=== PATIENT | female | born 1950 | race Caucasian/White ===

== ENCOUNTER 2016-12-14 14:28 | Inpatient (IN) | payer OTHER, MEDICAID ==
[2016-12-14] MEDS ORDERED: NS 500 ML IV ONE (15:23)
--- NOTE | 2016-12-14 15:24 | EDPHY ---
H & P Time Seen by Provider: 12/14/16 14:53 HPI/ROS: CHIEF COMPLAINT: Diarrhea HISTORY OF PRESENT ILLNESS: Patient is a 66-year-old female with previous traumatic brain injury with subsequent seizure disorder who presents to the emergency department with repeated episodes of diarrhea. The patient states she has had greater than 12 episodes of bloody diarrhea. She denies abdominal discomfort. Mild lightheadedness. No dizziness. No chest pain or shortness of breath. Patient denies rectal pain. REVIEW OF SYSTEMS: My complete review of systems is negative except as mentioned in the HPI. Past Medical/Surgical History: Includes traumatic brain injury Social history: The patient smokes cigarettes Smoking Status: Current every day smoker Physical Exam: Vitals noted GENERAL: No acute distress, alert. The lights are off in the room. The patient states that she cannot have the lights on as it will cause a seizure. The room smells of cigarette smoke. HEENT: Eyes normal to inspection, normal pharynx, no signs of dehydration. NECK: No thyromegaly, no lymphadenopathy, supple. RESPIRATORY: Clear to auscultation bilaterally, no rales, rhonchi or wheezing. CVS: Regular rate and rhythm, no rubs, murmurs, or gallops. ABDOMEN: Soft, nontender, nondistended, no organomegaly. Benign BACK: Normal to inspection, no CVA tenderness. SKIN: Normal color, no rash, warm, dry. No pallor. EXTREMITIES: No pedal edema, no calf tenderness, no Homans sign or cords, no joint swelling. NEURO/PSYCH: Alert and oriented x3, normal mood and affect, normal motor sensory exam. No obvious cranial nerve deficit. Constitutional: Initial Vital Signs Temperature (C) 36.5 C 12/14/16 14:37 Heart Rate 57 L 12/14/16 14:37 Respiratory Rate 16 12/14/16 14:37 Blood Pressure 181/119 H 12/14/16 14:37 O2 Sat (%) 98 12/14/16 14:37 O2 Delivery Mode Room Air Allergies/Adverse Reactions: No Known Allergies Allergy (Unverified 12/14/16 15:46) Medical Decision Making ED Course/Re-evaluation: In the emergency department I discussed the plan with the patient. I answered all her questions. IV was placed. Laboratory studies were obtained. Patient was given normal saline 500 mL IV for hydration. I reviewed the patient's laboratory studies. Of note her white count was elevated at nearly 30,000. Her hematocrit was 52. Chemistry panel is unremarkable. The patient had a bowel movement while in the emergency department. A sample was sent. The patient was noted to have ortiz blood. The I discussed the plan with the patient. I answered all her questions. I discussed the case with Dr. Randolph. He will admit the patient. Differential Diagnosis: Differential includes but is not limited to internal hemorrhoids, external hemorrhoids, fissure, diverticulitis, mass, malignancy, ischemic bowel, infectious diarrhea - Data Points Laboratory Results: Laboratory Results 12/14/16 14:42 12/14/16 14:42 12/14/16 12/14/16 12/14/16 14:42 14:42 14:42 WBC 29.80 10^3/uL H 10^3/uL (3.80-9.50) RBC 5.87 10^6/uL H 10^6/uL (4.18-5.33) Hgb 17.9 g/dL H g/dL (12.6-16.3) Hct 52.8 % H % (38.0-47.0) MCV 89.9 fL fL (81.5-99.8) MCH 30.5 pg pg (27.9-34.1) MCHC 33.9 g/dL g/dL (32.4-36.7) RDW 15.1 % % (11.5-15.2) Plt Count 295 10^3/uL 10^3/uL (150-400) MPV 10.9 fL fL (8.7-11.7) Neut % (Auto) 90.4 % H % (39.3-74.2) Lymph % (Auto) 3.2 % L % (15.0-45.0) [place] % (Auto) 5.2 % % (4.5-13.0) Eos % (Auto) 0.0 % L % (0.6-7.6) Baso % (Auto) 0.4 % % (0.3-1.7) Nucleat RBC Rel Count 0.0 % % (0.0-0.2) Absolute Neuts (auto) 26.93 10^3/uL H 10^3/uL (1.70-6.50) Absolute Lymphs (auto) 0.94 10^3/uL L 10^3/uL (1.00-3.00) Absolute Monos (auto) 1.55 10^3/uL H 10^3/uL (0.30-0.80) Absolute Eos (auto) 0.01 10^3/uL L 10^3/uL (0.03-0.40) Absolute Basos (auto) 0.12 10^3/uL H 10^3/uL (0.02-0.10) Absolute Nucleated RBC 0.00 10^3/uL 10^3/uL (0-0.01) Immature Gran % 0.8 % % (0.0-1.1) Immature Gran # 0.25 10^3/uL H 10^3/uL (0.00-0.10) PT 13.4 SEC SEC (12.0-15.0) INR 1.03 (0.83-1.16) APTT 32.2 SEC SEC (23.0-38.0) Sodium 145 mEq/L H mEq/L (134-144) Potassium 3.9 mEq/L mEq/L (3.5-5.2) Chloride 106 mEq/L mEq/L (97-110) Carbon Dioxide 23 mEq/l mEq/l (22-31) Anion Gap 16 mEq/L mEq/L (8-16) BUN 22 mg/dL mg/dL (7-23) Creatinine 0.8 mg/dL mg/dL (0.6-1.0) Estimated GFR > 60 Glucose 166 mg/dL H mg/dL (70-100) Calcium 10.8 mg/dL H mg/dL (8.5-10.4) Phosphorus 4.0 mg/dL mg/dL (2.5-4.5) Total Bilirubin 1.4 mg/dL mg/dL (0.1-1.4) Conjugated Bilirubin 0.7 mg/dL H mg/dL (0.0-0.5) Unconjugated Bilirubin 0.7 mg/dL mg/dL (0.0-1.1) AST 59 IU/L H IU/L (14-46) ALT 58 IU/L H IU/L (9-52) Alkaline Phosphatase 106 IU/L IU/L (38-126) Total Protein 8.0 g/dL g/dL (6.3-8.2) Albumin 4.6 g/dL g/dL (3.5-5.0) Lipase 29 IU/L IU/L (23-300) Medications Given: Discontinued Medications Sodium Chloride (Ns) 500 mls @ 0 mls/hr IV EDNOW ONE; Wide Open PRN Reason: Protocol Stop: 12/14/16 15:24 Last Admin: 12/14/16 15:45 Dose: 500 mls Departure - Departure Disposition: [facility] Inpatient Acute Clinical Impression: Diarrhea Qualifiers: Diarrhea type: unspecified type Qualified Code(s): R19.7 - Diarrhea, unspecified Leukocytosis Qualifiers: Leukocytosis type: unspecified Qualified Code(s): D72.829 - Elevated white blood cell count, unspecified Condition: Good Referrals: SHERRELL STONE [Other] - As per Instructions
[2016-12-14 15:33] LABS: % IMMATURE GRANULYOCYTES 0.8 % (0.0-1.1); ABSOLUTE IMMATURE GRANULOCYTES 0.25 10^3/uL (0.00-0.10); ADD DIFF? NO; ADD MORPH? NO; ADD SCAN? NO; ATYPICAL LYMPHOCYTE FLAG 0 (0-99); FRAGMENT RBC FLAG 0 (0-99); HEMATOCRIT 52.8 % (38.0-47.0); HEMOGLOBIN 17.9 g/dL (12.6-16.3); LEFT SHIFT FLG 10 (0-99); LIPEMIA HEMOLYSIS FLAG 90 (0-99); MEAN CELL HEMOGLOBIN 30.5 pg (27.9-34.1); MEAN CELL HEMOGLOBIN CONCENTR. 33.9 g/dL (32.4-36.7); MEAN CELL VOLUME 89.9 fL (81.5-99.8); MEAN PLATELET VOLUME 10.9 fL (8.7-11.7); PLATELET CLUMPS FLAG 0 (0-99); PLATELET COUNT 295 10^3/uL (150-400); RED BLOOD CELL COUNT 5.87 10^6/uL (4.18-5.33); RED CELL DISTRIBUTION WIDTH 15.1 % (11.5-15.2)
[2016-12-14 15:35] LABS: ALANINE AMINOTRANSFERASE 58 IU/L (9-52); ALBUMIN 4.6 g/dL (3.5-5.0); ALKALINE PHOSPHATASE 106 IU/L (38-126); ANION GAP 16 mEq/L (8-16); ASPARTATE AMINOTRANSFERASE 59 IU/L (14-46); BILIRUBIN,TOTAL 1.4 mg/dL (0.1-1.4); BILIRUBIN-CONJUGATED 0.7 mg/dL (0.0-0.5); BILIRUBIN-UNCONJUGATED 0.7 mg/dL (0.0-1.1); CALCIUM 10.8 mg/dL (8.5-10.4); CARBON DIOXIDE 23 mEq/l (22-31); CHLORIDE 106 mEq/L (97-110); CREATININE 0.8 mg/dL (0.6-1.0); GLOMERULAR FILTRATION RATE > 60; GLUCOSE 166 mg/dL (70-100); POTASSIUM 3.9 mEq/L (3.5-5.2); SODIUM 145 mEq/L (134-144)
[2016-12-14 15:38] LABS: INR 1.03 (0.83-1.16); PROTIME(PATIENT) 13.4 SEC (12.0-15.0)
[2016-12-14 15:39] LABS: APTT 32.2 SEC (23.0-38.0)
[2016-12-14] MEDS ORDERED: ONDANSETRON 4 MG/2 ML VIAL IVP PRN (16:51)
[2016-12-14] MEDS ORDERED: ONDANSETRON DISINTEGRATING 4 MG TAB PO PRN (16:51)
--- NOTE | 2016-12-14 17:44 | GHP ---
[f rep st] HISTORY AND PHYSICAL DATE OF ADMISSION: 12/14/2016 CHIEF COMPLAINT: Bloody diarrhea. HISTORY OF PRESENT ILLNESS: This is a 66-year-old female with a history of traumatic brain injury, sharan coley. She had woke up this morning in usual state of health and then started developing bloody di arrhea. Initially it was more diarrhea and less blood, and has progressed to more blood currently. She has had a little bit of cramping but no ortiz abdominal pain. She has not had a colonoscopy befo re. She does feel like she has had hemorrhoids in the past. She has had chills but no fever. No si ck contacts. No recent antibiotic usage or hospitalizations. REVIEW OF SYSTEMS: A 10-point review of systems was obtained and other than stated was negative. PAST MEDICAL HISTORY: 1. Traumatic brain injury. 2. Seizures. 3. Anxiety. SOCIAL HISTORY: Smoker. No alcohol. FAMILY HISTORY: No family history of colon cancer. PHYSICAL EXAMINATION: VITAL SIGNS: Afebrile, blood pressure is , heart rate is 57, oxygen saturation 96% on room air. GENERAL: The patient is well developed, in no apparent distress. HEEN T: Nonicteric sclerae. Extraocular movements intact. Moist mucous membranes. NECK: Supple. No thyromegaly. LUNGS: Good effort. Clear to auscultation bilaterally. CARDIOVASC ULAR: Regular rate and rhythm. No murmurs, rubs, or gallops. ABDOMEN: Positive bowel sounds. Sof t, nontender. No hepatosplenomegaly. EXTREMITIES: No clubbing, cyanosis, or edema. SKIN: Without rash, dry, intact. NEUROLOGIC: Alert and oriented x3. Moving all 4 extremities equally. PSYCH: Normal affect. LABORATORIES: White blood cell count is elevated at 29, hemoglobin is 17. Sodium 145, potassium 3.9 . AST 59, ALT 58. ASSESSMENT: This is a 66-year-old female presenting with bloody diarrhea, leukocytosis. PLAN: 1. Bloody diarrhea. Trying to differentiate between lower GI bleed versus infectious bloody diarrhe a. GI pathogens testing has been sent. She does not seem to have a lot of risk factors for C diffic ile. We will monitor H and H. If GI pathogen panel is negative, we will consider GI consultation. 2. History of seizures. Continue medications. 3. Leukocytosis could be related to infection or stress of bleeding. We will continue to watch. We will hold on antibiotics unless something is positive on her GI pathogen panel. 4. Polycythemia could chronic due to her from smoking or could be dehydration. We will continue to watch. /[id number]/MODL
[2016-12-14] MEDS: NS 1,000 ML IV SCH (18:46)
[2016-12-14] MEDS: ACETAMINOPHEN 325 MG TAB PO PRN (22:12)
[2016-12-15 01:52] LABS: HEMATOCRIT 47.1 % (38.0-47.0); HEMOGLOBIN 15.2 g/dL (12.6-16.3)
[2016-12-15] MEDS: NS 1,000 ML IV SCH ×2 (04:26→12:36)
[2016-12-15] MEDS: ACETAMINOPHEN 325 MG TAB PO PRN ×3 (04:26→21:03)
[2016-12-15 05:06] LABS: % IMMATURE GRANULYOCYTES 0.3 % (0.0-1.1); ABSOLUTE IMMATURE GRANULOCYTES 0.05 10^3/uL (0.00-0.10); ADD DIFF? NO; ADD MORPH? NO; ADD SCAN? NO; ATYPICAL LYMPHOCYTE FLAG 0 (0-99); FRAGMENT RBC FLAG 0 (0-99); HEMATOCRIT 42.4 % (38.0-47.0); HEMOGLOBIN 14.2 g/dL (12.6-16.3); LEFT SHIFT FLG 0 (0-99); LIPEMIA HEMOLYSIS FLAG 80 (0-99); MEAN CELL HEMOGLOBIN 29.3 pg (27.9-34.1); MEAN CELL HEMOGLOBIN CONCENTR. 33.5 g/dL (32.4-36.7); MEAN CELL VOLUME 87.6 fL (81.5-99.8); MEAN PLATELET VOLUME 10.7 fL (8.7-11.7); PLATELET CLUMPS FLAG 0 (0-99); PLATELET COUNT 213 10^3/uL (150-400); RED BLOOD CELL COUNT 4.84 10^6/uL (4.18-5.33); RED CELL DISTRIBUTION WIDTH 14.7 % (11.5-15.2)
[2016-12-15 05:14] LABS: ALANINE AMINOTRANSFERASE 52 IU/L (9-52); ALBUMIN 3.2 g/dL (3.5-5.0); ALKALINE PHOSPHATASE 70 IU/L (38-126); ANION GAP 9 mEq/L (8-16); ASPARTATE AMINOTRANSFERASE 37 IU/L (14-46); BILIRUBIN,TOTAL 0.8 mg/dL (0.1-1.4); CALCIUM 8.9 mg/dL (8.5-10.4); CARBON DIOXIDE 19 mEq/l (22-31); CHLORIDE 115 mEq/L (97-110); CREATININE 0.7 mg/dL (0.6-1.0); GLOMERULAR FILTRATION RATE > 60; GLUCOSE 97 mg/dL (70-100); POTASSIUM 3.6 mEq/L (3.5-5.2); SODIUM 143 mEq/L (134-144); TOTAL PROTEIN 5.7 g/dL (6.3-8.2)
[2016-12-15 05:21] LABS: COLOR AMBER; LEUKOCYTE ESTERASE,URINE 1+ (NEGATIVE); NITRITE,URINE POSITIVE (NEGATIVE)
[2016-12-15 05:45] LABS: BACTERIA 4+ /hpf (NONE SEEN); MUCUS 2+ /lpf (NONE-1+); RBC,URINE 25-50 /hpf (0-3)
[2016-12-15 08:15] LABS: HEMATOCRIT 41.1 % (38.0-47.0)
[2016-12-15] MEDS: DIAZEPAM 5 MG TAB PO PRN (09:51)
[2016-12-15] MEDS: ADDERALL 10 MG TAB PO SCH (10:07)
--- NOTE | 2016-12-15 13:04 | HOSPPROG ---
Hospitalist Progress Note Assessment/Plan: First encounter with this patient 66 yo female admitted with one day hx of bloody diarrhea. On admission she had polycythemia. It was felt that she had a LGIB vs infectious diarrhea on admission, but infectious w/u has been unremarkable. Today, she no longer has diarrhea, but intermittently is passing small amount of red blood. No melena. She has a hx of chronic NSAID use for which she takes for BARDALES's. She does c/o of some mid epigastric abd pain. Hgb has dropped but is 14. She does not have hypotension or tachycardia. 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 -consult GI -Start PPI, blood pattern likely indicated LGIB, but given hx of NSAIDS and abd discomfort will start Protonix -hemodynamically stable -Decrease IVF -will cont CLD for now #GI Bleed. Likely LGIB #Blood diarrhea, w/u negative for infectious etiology #Polycythemia, resolved #chronic NSAID use Subjective: No further diarrhea. Still with intermittent blood per rectum. No CP or SOB. No tachycardia Objective: Vital Signs Temp Pulse Resp BP Pulse Ox 37.0 C 60 18 141/84 H 94 12/15/16 12:00 12/15/16 12:00 12/15/16 12:00 12/15/16 12:00 12/15/16 12:00 Microbiology 12/14/16 17:45 Gastrointestinal Tract Panel (PCR) - Final Stool No Organism Detected Laboratory Results 12/15/16 08:09 12/15/16 04:50 12/14/16 12/15/16 12/16/16 05:59 05:59 05:59 Intake Total 250 Output Total 300 Balance -50 PT 13.4 SEC (12.0-15.0) 12/14/16 14:42 INR 1.03 (0.83-1.16) 12/14/16 14:42 - Physical Exam Constitutional: no apparent distress, appears nourished, not in pain Eyes: PERRL, anicteric sclera, EOMI Ears, Nose, Mouth, Throat: moist mucous membranes, hearing normal Cardiovascular: regular rate and rhythym, No irregularly irregular, No edema Respiratory: no respiratory distress, no rales or rhonchi, clear to auscultation Gastrointestinal: tenderness (epigastric), No distension Skin: warm Neurologic: AAOx3 Psychiatric: interacting appropriately, not anxious, not encephalopathic ICD10 Worksheet Patient Problems: Problems Problem Status Onset Diarrhea Acute Leukocytosis Acute
[2016-12-15] MEDS: PANTOPRAZOLE SODIUM 40 MG in NS 100 ML IV SCH ×2 (13:39→21:04)
[2016-12-15 13:57] LABS: HEMATOCRIT 39.4 % (38.0-47.0); HEMOGLOBIN 13.7 g/dL (12.6-16.3)
[2016-12-15] MEDS: oxyCODONE IR 5 MG TAB PO PRN ×2 (15:09→21:03)
--- NOTE | 2016-12-15 15:37 | PDMN ---
Medical Necessity Medical necessity: change to IP; los>2mn for ongoing eval and rx of LGIB, with continued BRBPR; requires IV PPI, continued monitoring; hx chronic NSAID use; per progress note and order 12/15/16
--- NOTE | 2016-12-15 16:15 | ASMTCMCOM ---
CM Note CM Note Notes: chart reviewed. Met with patient to review dc POC. Lives independent with good support. She may dc tomorrow if HGB and HCT stable. She is planning on foillowing up with out pt colonoscopy. No needs identified at this time. CM available shound needs arise. Date Signed: 12/15/2016 04:14 PM Electronically Signed By:Freda Raza RN
[2016-12-15] MEDS ORDERED: ADDERALL 10 MG TAB PO SCH (18:00)
[2016-12-15] MEDS ORDERED: DIAZEPAM 5 MG TAB PO ONE (21:00)
--- NOTE | 2016-12-16 00:10 | CPEKG ---
Heart Rate: 131 RR Interval: 458 QRSD Interval: 84 QT Interval: 344 QTC Interval: 508 QRS Centre: 66 T Wave Centre: 16 EKG Severity - ABNORMAL ECG - EKG Impression: ATRIAL FIBRILLATION EKG Impression: BORDERLINE ST DEPRESSION, DIFFUSE LEADS EKG Impression: BORDERLINE PROLONGED QT INTERVAL Electronically Signed By: Tierney Gaytan 17-Dec-2016 06:50:16
[2016-12-16] MEDS ORDERED: NS 1,000 ML IV ONE (00:24)
--- NOTE | 2016-12-16 00:31 | HOSPPROG ---
Hospitalist Progress Note Assessment/Plan: Cross cover: Called about new tachycardia. Obtained ECG, which showed Afib. This appears to be new from my review. Will give IVF and place patient on telemetry monitoring. She is hemodynamically stable but may require AV kathleen blocking agents in HR persistently elevated. Objective: Vital Signs Temp Pulse Resp BP Pulse Ox 37.1 C 111 H 18 141/115 H 94 12/15/16 23:36 12/15/16 23:36 12/15/16 23:36 12/15/16 23:36 12/15/16 23:36 12/14/16 12/15/16 12/16/16 05:59 05:59 05:59 Intake Total 500 Balance 500 PT 13.4 SEC (12.0-15.0) 12/14/16 14:42 INR 1.03 (0.83-1.16) 12/14/16 14:42 ICD10 Worksheet Patient Problems: Problems Problem Status Onset Diarrhea Acute Leukocytosis Acute
[2016-12-16 05:24] LABS: % IMMATURE GRANULYOCYTES 0.4 % (0.0-1.1); ABSOLUTE IMMATURE GRANULOCYTES 0.04 10^3/uL (0.00-0.10); ADD DIFF? NO; ADD MORPH? NO; ADD SCAN? NO; ATYPICAL LYMPHOCYTE FLAG 10 (0-99); FRAGMENT RBC FLAG 0 (0-99); HEMATOCRIT 39.2 % (38.0-47.0); HEMOGLOBIN 13.3 g/dL (12.6-16.3); LEFT SHIFT FLG 0 (0-99); LIPEMIA HEMOLYSIS FLAG 90 (0-99); MEAN CELL HEMOGLOBIN CONCENTR. 33.9 g/dL (32.4-36.7); MEAN CELL VOLUME 88.5 fL (81.5-99.8); MEAN PLATELET VOLUME 10.9 fL (8.7-11.7); PLATELET CLUMPS FLAG 10 (0-99); PLATELET COUNT 188 10^3/uL (150-400); RED BLOOD CELL COUNT 4.43 10^6/uL (4.18-5.33); RED CELL DISTRIBUTION WIDTH 15.2 % (11.5-15.2)
[2016-12-16 05:35] LABS: ANION GAP 5 mEq/L (8-16); CALCIUM 8.8 mg/dL (8.5-10.4); CARBON DIOXIDE 20 mEq/l (22-31); CHLORIDE 116 mEq/L (97-110); CREATININE 0.7 mg/dL (0.6-1.0); GLOMERULAR FILTRATION RATE > 60; GLUCOSE 84 mg/dL (70-100); POTASSIUM 3.6 mEq/L (3.5-5.2); SODIUM 141 mEq/L (134-144)
[2016-12-16] MEDS ORDERED: DEXTROAMPHETAMINE 5 MG TAB PO SCH (09:00)
[2016-12-16] MEDS ORDERED: AMPHETAMINE PO SCH (09:00)
[2016-12-16] MEDS ORDERED: DEXTROAMPHETAMINE PO SCH (09:00)
[2016-12-16] MEDS: oxyCODONE IR 5 MG TAB PO PRN ×2 (09:14→17:47)
[2016-12-16] MEDS: ADDERALL 10 MG TAB PO SCH (09:15)
[2016-12-16] MEDS: PANTOPRAZOLE SODIUM 40 MG in NS 100 ML IV SCH (09:17)
--- NOTE | 2016-12-16 09:41 | CPEKG ---
Heart Rate: 57 RR Interval: 1053 P-R Interval: 168 QRSD Interval: 92 QT Interval: 472 QTC Interval: 460 P [place]: -11 QRS [place]: 32 T Wave [place]: 4 EKG Severity - NORMAL ECG - EKG Impression: SINUS RHYTHM EKG Impression: SINUS RHYTHM HAS REPLACED ATRIAL FIBRILLATION NOTED ON PRIOR ECG Electronically Signed By: Pranav Irizarry 18-Dec-2016 08:33:09
--- NOTE | 2016-12-16 09:56 | HOSPPROG ---
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 On admission she had polycythemia. It was felt that she had a LGIB vs infectious diarrhea on admission, but infectious w/u has been unremarkable. She has a hx of chronic NSAID use for which she takes for BARDALES's. Overall Hgb has decreased slightly, but she has been on IVF. Overnight, she developed Afib. Unclear if this is new onset as she thinks she has had 2 previous episodes. BP has been high as well. She was given additional IVF with resolution. I ordered and reviewed an EKG this morning and this shows NSR. She does not have CP or SOB Yesterday, I spoke with GI about colonoscopy. Given that she is hemodynamically stable, the patient preferred to wait until an outpatient setting for colonoscopy. Plan: -Repeat Hgb now -If no further drop, then will start BB. If further drop, will need colonoscopy -Monitor off IVF -cont Telemetry -Check TTE -Cards consult -Cont PPI IV BID. If no further drop, change to PO. Suspect LGIB, but due to chronic NSAID use and abd discomfort, will treat -CLD for now. If no further drop, will advance -Monitor overnight #GI Bleed. Likely LGIB #Blood diarrhea, w/u negative for infectious etiology #Polycythemia, resolved #chronic NSAID use #Afib, ?new onset Subjective: went into Afib yesterday. Now appears in SR. No CP or SOB. No N/V. Still with mild abd discomfort. Very tearful about going into afib. She thinks she may have had Afib twice previously. No further blood per rectum. No diarrhea. Objective: Vital Signs Temp Pulse Resp BP Pulse Ox 36.6 C 66 16 170/93 H 97 12/16/16 08:00 12/16/16 08:00 12/16/16 08:00 12/16/16 08:44 12/16/16 08:00 Laboratory Results 12/16/16 04:40 12/16/16 04:40 12/15/16 12/16/16 12/17/16 05:59 05:59 05:59 Intake Total 500 Balance 500 PT 13.4 SEC (12.0-15.0) 12/14/16 14:42 INR 1.03 (0.83-1.16) 12/14/16 14:42 - Time Spent With Patient Time Spent with Patient: greater than 35 minutes Time Spent with Patient: Greater than 35 minutes spent on this patients care, greater than 50% of time spent counseling, educating, and coordinating care regarding the above mentioned plan. - Physical Exam Constitutional: no apparent distress, appears nourished, not in pain Eyes: PERRL, anicteric sclera, EOMI Ears, Nose, Mouth, Throat: moist mucous membranes, hearing normal Cardiovascular: regular rate and rhythym, systolic murmur, No no murmur, rub, or gallop, No edema Respiratory: no respiratory distress, no rales or rhonchi, clear to auscultation Gastrointestinal: tenderness (epigastric), No rebound, No distension Skin: warm Neurologic: AAOx3, sensation intact bilaterally Psychiatric: interacting appropriately, not anxious, not encephalopathic, thought process linear ICD10 Worksheet Patient Problems: Problems Problem Status Onset Diarrhea Acute Leukocytosis Acute
--- NOTE | 2016-12-16 11:50 | ECHO ---
[email or web address] [address] Main: [phone] Fax: [email or web address] Echocardiogram Name: FRANDY TURNER MR#: [id number] Study Date: 12/16/2016 Study Time: 10:48 AM Date of : 1950 Age: 66 year(s) Height: 167.6 cm (66 in.) Weight: 74.84 kg (165 lb.) BSA: 1.84 m2 Gender: Female Examination: Echo Indication: Atrial Fibrillation Image Quality: Contrast: Requested by: Houston Reyes BP: 170 mmHg/93 mmHg Heart Rate: Rhythm: Indication: Atrial Fibrillation Procedure Staff Curbstone Setter: Vivien Joseph Reading Physician: Jorge A Harmon Requesting Provider: Conclusions: Normal left ventricular systolic function. Ejection fraction 65%. Progessive mitral valve regurgitation associated with left atrial enlargement and elevated filling pressures (Based on moderate mitral regurgitation a repeat echo may be considered in 1 yr unless there is a change in clinical status.) Systemic hypertension Measurements: Chambers Valvular Assessment AV/MV Valvular Assessment TV/PV Normal Normal Normal Name Value Range Name Value Range Name Value Range Ao Nicky (MM): 3.3 cm (2.2 cm-3.7 AV Vmax: 1.25 m/s (1 m/s-1.7 TR Vmax: 2.43 mm/s ( - ) cm) m/s) TR PGmax: 24 mmHg ( - ) IVSd (2D): 0.5 cm (0.6 cm-1.1 AV maxP mmHg ( - ) syst. PAP: 29 mmHg ( - ) cm) MV E Vmax: 0.96 m/s ( - ) LVDd (2D): 4.9 cm (3.9 cm-5.3 MV A Vmax: 0.79 m/s ( - ) cm) MV E/A: 1.22 ( - ) LVDs (2D): 3.2 cm (2.1 cm-4 cm) LVPWd (2D): 0.8 cm ( - ) LVOTd 1.9 cm 1.9 cm mm LVEF (MOD4): 67 % (>=55 %) Visual EF: 65 % Continued Measurements: Chambers Valvular Assessment AV/MV Valvular Assessment TV/PV Name Value Name Value Name Value LADs: 4.1 cm MV E' Septal: 0.06 m/s CVP (est.): 5 mmHg LADs Lon.2 cm MV E/E' Septal: 15.70 LA Area: 17.4 cm2 MV E/E' Lateral: 18.00 Patient: FRANDY TURNER Study Date: 12/16/2016 Page 1 of 2 10:48 AM MR Vena Contracta: 0.4 cm Findings: Left Ventricle: Normal size left ventricle. The ejection fraction is visually estimated to be 65 %. Right Ventricle: Normal size right ventricle. Left Atrium: The left atrium is mildly dilated. There is an atrial septal aneurysm with right excursion. Right Atrium: The right atrium is normal in size. Possible Eustachian valve in right atrium. Mitral Valve: The mitral valve is normal in appearance. Mild to moderate mitral regurgitation. Aortic Valve: The aortic valve is tri-leaflet. Tricuspid Valve: The tricuspid valve appears normal. Mild tricuspid regurgitation is present. The pulmonary artery pressure is normal. Pulmonic Valve: The pulmonic valve is normal in appearance. Trivial pulmonic valve regurgitation. Pericardium: No pericardial effusion. (No Signature Object) Patient: FRANDY TURNER Study Date: 12/16/2016 Page 2 of 2 10:48 AM [id number]
--- NOTE | 2016-12-16 11:52 | PDCARCONS ---
Cardiology Consult Reason for Consult: Atrial fibrillation. Chief Complaint: palpitations Requesting Physician: Eric History of Present Illness: 66-year-old female no prior cardiovascular history admitted with bloody diarrhea. Last evening she experienced brief palpitations. EKG showed atrial fibrillation with rapid ventricular response. This morning she is back in sinus rhythm. She has a history of occasional palpitations. She had a negative cardiac workup in the past including a negative chemical MPI. She has no prior history of coronary artery disease, valvular heart disease, dysrhythmia , heart failure. 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 She tito up and hit her head on a cabinet door. This has been complicated by seizures. She does take Adderall for concentration. She is a smoker of both tobacco and marijuana. She has no history of hyperlipidemia, family history of early heart disease, diabetes. She denies angina, PND, orthopnea. She has had no syncope or near syncope. History Information - Allergies/Home Medication List Allergies/Adverse Reactions: gabapentin Allergy (Severe, Unverified 12/14/16 17:31) Unknown Home Medications: Dextroamphetamine/Amphetamine [Adderall 5 mg Tablet] 15 mg PO DAILY@07 12/14/16 [Last Taken 12/13/16] Diazepam [Valium 5 MG (*)] 5 mg PO DAILY PRN 12/14/16 [Last Taken 2 Weeks Ago ~ 11/30/16] Naproxen [Naprosyn] 500 mg PO BID 12/14/16 [Last Taken 12/13/16] oxyCODONE IR [Oxycodone Ir (*)] 10 mg PO TID PRN 12/14/16 [Last Taken 12/13/16] Dextroamphetamine/Amphetamine [Adderall 5 mg Tablet] 10 mg PO DAILY@18 12/15/16 [Last Taken Unknown] I have personally reviewed and updated: family history, medical history, social history, surgical history Past Medical History: - Social History Smoking Status: Current every day smoker Alcohol Use: None Drug Use: Marijuana (Daily) Age in Years: < 65 (2) Sex: Female Congestive Heart Failure History: No Hypertension History: Yes Stroke/TIA/Thromboembolism History: No Vascular Disease History: No Diabetes Mellitus: No [id number] Score: 5x Physical Exam Physical Exam: Temp Pulse Resp BP Pulse Ox 37.0 C 59 L 17 174/99 H 97 10/13/17 11:39 12/16/16 11:39 12/16/16 11:39 12/16/16 11:39 12/16/16 11:39 Constitutional: no apparent distress Eyes: anicteric sclera, No icteric sclera Ears, Nose, Mouth, Throat: poor dentition Cardiovascular: regular rate and rhythym, systolic murmur, other (S1 accentuated ), No JVD, No carotid bruit Peripheral Pulses: 1+: carotid (R), carotid (L), femoral (R), femoral (L) Respiratory: reduced air movement, rhonchi Gastrointestinal: normoactive bowel sounds, soft, non-tender abdomen Skin: warm, normal color, no rashes or abrasions Neurologic: AAOx3, No facial droop Psychiatric: anxious Lymph, Heme, Immunologic: no cervical LAD, no supraclavicular LAD Lab and Imaging 12/16/16 10:16 12/16/16 04:40 WBC 10.76 10^3/uL (3.80-9.50) H 12/16/16 04:40 RBC 4.43 10^6/uL (4.18-5.33) 12/16/16 04:40 Hgb 14.1 g/dL (12.6-16.3) 12/16/16 10:16 Hct 39.2 % (38.0-47.0) 12/16/16 04:40 MCV 88.5 fL (81.5-99.8) 12/16/16 04:40 MCH 30.0 pg (27.9-34.1) 12/16/16 04:40 MCHC 33.9 g/dL (32.4-36.7) 12/16/16 04:40 RDW 15.2 % (11.5-15.2) 12/16/16 04:40 Plt Count 188 10^3/uL (150-400) 12/16/16 04:40 MPV 10.9 fL (8.7-11.7) 12/16/16 04:40 Neut % (Auto) 55.0 % (39.3-74.2) 12/16/16 04:40 Lymph % (Auto) 36.2 % (15.0-45.0) 12/16/16 04:40 [place] % (Auto) 6.6 % (4.5-13.0) 12/16/16 04:40 Eos % (Auto) 1.3 % (0.6-7.6) 12/16/16 04:40 Baso % (Auto) 0.5 % (0.3-1.7) 12/16/16 04:40 Nucleat RBC Rel Count 0.0 % (0.0-0.2) 12/16/16 04:40 Absolute Neuts (auto) 5.92 10^3/uL (1.70-6.50) 12/16/16 04:40 Absolute Lymphs (auto) 3.90 10^3/uL (1.00-3.00) H 12/16/16 04:40 Absolute Monos (auto) 0.71 10^3/uL (0.30-0.80) 12/16/16 04:40 Absolute Eos (auto) 0.14 10^3/uL (0.03-0.40) 12/16/16 04:40 Absolute Basos (auto) 0.05 10^3/uL (0.02-0.10) 12/16/16 04:40 Absolute Nucleated RBC 0.00 10^3/uL (0-0.01) 12/16/16 04:40 Immature Gran % 0.4 % (0.0-1.1) 12/16/16 04:40 Immature Gran # 0.04 10^3/uL (0.00-0.10) 12/16/16 04:40 PT 13.4 SEC (12.0-15.0) 12/14/16 14:42 INR 1.03 (0.83-1.16) 12/14/16 14:42 APTT 32.2 SEC (23.0-38.0) 12/14/16 14:42 Sodium 141 mEq/L (134-144) 12/16/16 04:40 Potassium 3.6 mEq/L (3.5-5.2) 12/16/16 04:40 Chloride 116 mEq/L (97-110) H 12/16/16 04:40 Carbon Dioxide 20 mEq/l (22-31) L 12/16/16 04:40 Anion Gap 5 mEq/L (8-16) L 12/16/16 04:40 BUN 9 mg/dL (7-23) 12/16/16 04:40 Creatinine 0.7 mg/dL (0.6-1.0) 12/16/16 04:40 Estimated GFR > 60 12/16/16 04:40 Glucose 84 mg/dL (70-100) 12/16/16 04:40 Calcium 8.8 mg/dL (8.5-10.4) 12/16/16 04:40 Phosphorus 4.0 mg/dL (2.5-4.5) 12/14/16 14:42 Magnesium 2.0 mg/dL (1.6-2.3) 12/16/16 04:40 Total Bilirubin 0.8 mg/dL (0.1-1.4) 12/15/16 04:50 Conjugated Bilirubin 0.7 mg/dL (0.0-0.5) H 12/14/16 14:42 Unconjugated Bilirubin 0.7 mg/dL (0.0-1.1) 12/14/16 14:42 AST 37 IU/L (14-46) 12/15/16 04:50 ALT 52 IU/L (9-52) 12/15/16 04:50 Alkaline Phosphatase 70 IU/L (38-126) 12/15/16 04:50 Total Protein 5.7 g/dL (6.3-8.2) L D 12/15/16 04:50 Albumin 3.2 g/dL (3.5-5.0) L D 12/15/16 04:50 Lipase 29 IU/L (23-300) 12/14/16 14:42 Urine Color NIVIA 12/15/16 04:20 Urine Appearance HAZY 12/15/16 04:20 Urine pH 5.0 (5.0-7.5) 12/15/16 04:20 Ur Specific [place] 1.027 (1.002-1.030) 12/15/16 04:20 Urine Protein 1+ (NEGATIVE) H 12/15/16 04:20 Urine Ketones NEGATIVE (NEGATIVE) 12/15/16 04:20 Urine Blood 3+ (NEGATIVE) H 12/15/16 04:20 Urine Nitrate POSITIVE (NEGATIVE) H 12/15/16 04:20 Urine Bilirubin NEGATIVE (NEGATIVE) 12/15/16 04:20 Urine Urobilinogen NEGATIVE EU (0.2-1.0) 12/15/16 04:20 Ur Leukocyte Esterase 1+ (NEGATIVE) H 12/15/16 04:20 Urine RBC 25-50 /hpf (0-3) H 12/15/16 04:20 Urine WBC 5-10 /hpf (0-3) H 12/15/16 04:20 Ur Epithelial Cells 1+ /lpf (NONE-1+) 12/15/16 04:20 Urine Bacteria 4+ /hpf (NONE SEEN) H 12/15/16 04:20 Urine Mucus 2+ /lpf (NONE-1+) H 12/15/16 04:20 Urine Glucose 1+ (NEGATIVE) H 12/15/16 04:20 Stool Occult Bld Scrn POSITIVE (NEGATIVE) H 12/14/16 17:45 Laboratory Tests 12/14/16 12/15/16 12/16/16 14:42 04:50 04:40 Potassium 3.9 3.6 3.6 AST 59 H ALT 58 H Total Protein 5.7 L D Albumin 3.2 L D EKG additional interpertation: Atrial fibrillation with ventricular rate of 131 , EKG today showed sinus rhythm without acute ST-T changes. Echocardiogram: Preserved LV systolic function, elevated left ventricular end-diastolic pressure by tissue Doppler, moderate mitral regurgitation with left atrial enlargement. A/P Assessment: Problem list: 1. Paroxysmal atrial fibrillation CHADS VASC score of 2 2. Systemic hypertension associated with elevated filling pressures. 3. Progressive mitral regurgitation with left atrial enlargement. 4. COPD with ongoing tobacco abuse 5. Hypokalemia associated with recent diarrheal illness. 6. Cognitive dysfunction secondary to brain injury with ongoing use of marijuana and Adderall. 7. Elevated liver function tests with decreased albumin and protein , concern for synthetic function of the liver. Impression: Minimally symptomatic paroxysmal atrial fibrillation with palpitations. This was not associated with hemodynamic instability/angina, signs of heart failure. EKG showed rate to be 131 beats per minute at rest. She converted spontaneously. She has multiple potential contributing triggers including likely systemic hypertension, left atrial enlargement associated with progressive valvular heart disease, COPD with ongoing tobacco abuse, hypokalemia. Her overall health at this point is somewhat concerning with elevated liver function tests, decreased protein and albumin, cognitive dysfunction. She has had a workup in the past for coronary artery disease which was reportedly negative. Patient's overall chads Vasc score of 2 based on her likely diagnosis of hypertension and being a female. At this point with bloody diarrhea, cognitive dysfunction, uncertain liver function, would not favor initiation of long-term anticoagulation though this would be recommended. For would await clinical recovery and completion of overall health evaluation before making a decision. We would be happy to see her in the outpatient clinic to complete this evaluation. Patient has progressive mitral valve disease with moderate regurgitation left atrial enlargement. Serial echocardiography at least at 1 year increments recommended. Recommendations: Complete risk stratification with assessment of lipids and hemoglobin A1c. Complete metabolic assessment with measurement of TSH Assess degree of cardiac stress with measurement of troponin, CPKMB, BNP. Consider initiation of blood pressure therapy, would recommend beta-rosalba in the setting of atrial fibrillation. Strong recommendation for smoking cessation in light of cognitive dysfunction, COPD based on clinical examination. Replete electrolytes in particular potassium, patient may also need magnesium. Past Medical History PMH: - Personal History Current Tetanus/Diphtheria Vaccine: Yes Current Tetanus Diphtheria and Acellular Pertussis (TDAP): Yes - Medical/Surgical History Hx Asthma: No Hx Chronic Respiratory Disease: No Hx Cardiac Disease: No Hx Diabetes: No Hx Renal Disease: No Hx Alcoholism: No Hx Cirrhosis: No Hx HIV/AIDS: No Hx Splenectomy or Spleen Trauma: No Other PMH: pmh: TBI - Social History Smoking Status: Current every day smoker Additional Social History: Review of Systems Review of Systems: - Review of Systems Constitutional: denies: chills, fever, malaise EENTM: no symptoms reported Respiratory: cough Cardiac: palpitations. denies: chest pain, edema, irregular heart rate, lightheadedness, syncope Gastrointestinal/Abdominal: diarrhea, blood streaked stools Genitourinary: no symptoms Musculoskelatal: no symptoms Skin: no symptoms Neurological: anxiety, depressed, other (difficulty concentrating) Immunologic/allergic: no symptoms reported
[2016-12-16] MEDS ORDERED: ADDERALL 10 MG TAB PO SCH (13:15)
[2016-12-16 13:46] LABS: CHOLESTEROL 130 mg/dL (140-220); HIGH DENSITY LIPOPROTEIN 42 mg/dL (40-85); LDL/HDL RATIO 1.67 RATIO (1.00-3.22); LOW DENSITY LIPOPROTEIN 70 mg/dL (80-100); NON-HIGH DENSITY LIPOPROTEIN 88 mg/dL (90-129); TRIGLYCERIDE 92 mg/dL (35-135); VERY LOW DENSITY LIPOPROTEINS 18 mg/dL (8-25)
[2016-12-16 13:59] LABS: CREATINE KINASE-MB FRACTION 2.75 ng/mL (0.00-3.19)
[2016-12-16] MEDS: METOPROLOL TARTRATE 25 MG TAB PO SCH ×2 (14:50→20:12)
[2016-12-16] MEDS ORDERED: hydrALAZINE 25 MG TAB PO PRN (17:22)
[2016-12-16] MEDS: ACETAMINOPHEN 325 MG TAB PO PRN (17:47)
[2016-12-16] MEDS: PANTOPRAZOLE SODIUM 40 MG TAB PO SCH (20:12)
[2016-12-16] MEDS ORDERED: MELATONIN 3 MG TAB PO SCH (21:00)
[2016-12-16] MEDS: DIAZEPAM 5 MG TAB PO PRN (22:46)
[2016-12-17 04:47] LABS: % IMMATURE GRANULYOCYTES 0.2 % (0.0-1.1); ABSOLUTE IMMATURE GRANULOCYTES 0.02 10^3/uL (0.00-0.10); ADD DIFF? NO; ADD MORPH? NO; ADD SCAN? NO; ATYPICAL LYMPHOCYTE FLAG 10 (0-99); FRAGMENT RBC FLAG 0 (0-99); HEMATOCRIT 42.6 % (38.0-47.0); HEMOGLOBIN 14.6 g/dL (12.6-16.3); LEFT SHIFT FLG 0 (0-99); LIPEMIA HEMOLYSIS FLAG 90 (0-99); MEAN CELL HEMOGLOBIN CONCENTR. 34.3 g/dL (32.4-36.7); MEAN CELL VOLUME 87.5 fL (81.5-99.8); MEAN PLATELET VOLUME 10.3 fL (8.7-11.7); PLATELET CLUMPS FLAG 0 (0-99); PLATELET COUNT 185 10^3/uL (150-400); RED BLOOD CELL COUNT 4.87 10^6/uL (4.18-5.33); RED CELL DISTRIBUTION WIDTH 15.1 % (11.5-15.2)
[2016-12-17 05:00] LABS: ANION GAP 7 mEq/L (8-16); CALCIUM 9.4 mg/dL (8.5-10.4); CARBON DIOXIDE 21 mEq/l (22-31); CHLORIDE 113 mEq/L (97-110); CREATININE 0.8 mg/dL (0.6-1.0); GLOMERULAR FILTRATION RATE > 60; GLUCOSE 92 mg/dL (70-100); POTASSIUM 3.6 mEq/L (3.5-5.2); SODIUM 141 mEq/L (134-144)
[2016-12-17 05:10] LABS: TROPONIN I 0.126 ng/mL (0.000-0.034)
[2016-12-17] MEDS: ADDERALL 10 MG TAB PO SCH (08:27)
[2016-12-17] MEDS: DIAZEPAM 5 MG TAB PO PRN (08:27)
[2016-12-17] MEDS: PANTOPRAZOLE SODIUM 40 MG TAB PO SCH (08:28)
[2016-12-17] MEDS: METOPROLOL TARTRATE 25 MG TAB PO SCH (08:28)
[2016-12-17] MEDS: ACETAMINOPHEN 325 MG TAB PO PRN (08:28)
[2016-12-17 08:31] VITALS: PULSE 69
[2016-12-17 09:14] VITALS: BP 144/69; RESP 19; TEMP 98.2; O2SAT 95
--- NOTE | 2016-12-17 11:00 | PDDCSUM ---
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 On admission she had polycythemia. It was felt that she had a LGIB vs infectious diarrhea on admission, but infectious w/u was unremarkable. She has a hx of chronic NSAID use for which she takes for BARDALES's. She did not get a colonoscopy while inpatient as her Hgb was stable, bleeding stopped, and she chose to f/u with GI in an outpatient setting. Although this was likely a LGIB, Naproxen was stopped and Protonix started. She developed a short course of Afib on 12/15 which resolved with IVF. She was started on Metoprolol 12.5mg BID. Given her bleed neither Aspirin or AC was started. She has been in NSR since. She will f/u with Dr. Harmon. TTE was non revealing. BP has been labile but mostly elevated. Given lability, recently starting Metoprolol, and recent bleed, I am reluctant to treat further. As she has remained stable since yesterday and she wants discharge will d/c home. F/u with GI, PCP, Cards as instructed. Discharge Diagnosis: #GI Bleed. Likely LGIB #Blood diarrhea, w/u negative for infectious etiology #Polycythemia, resolved #chronic NSAID use #Afib, ?new onset #HTN #low back pain: lidoderm patches provided Exam: NAD AAOX3 RRR CTAB S/NT/ND NO EDEMA MEDS: SEE MED REC: STOP NAPROXEN, START METOPROLOL 12.5MG BID, START PROTONIX 40MG PO BID TOTAL TIME SPENT ON DISCHARGE IS 38 MINS.
[2016-12-17] MEDS: oxyCODONE IR 5 MG TAB PO PRN (11:37)
--- NOTE | 2016-12-17 12:10 | ASDISCHSUM ---
Discharge Information Plan Status:Home with No Needs Medically Cleared to Leave: Discharge Date:12/17/2016 11:53 AM CM D/C Disposition:Home, Routine, Self-Care ADT D/C Disposition:Home, Routine, Self-Care Projected Discharge Date:12/17/2016 11:53 AM Transportation at D/C:Family Discharge Delay Reason: Follow-Up Date:12/17/2016 11:53 AM Discharge Slot: Final Diagnosis: Placement Information Patient Contact Information Contact Name:MIKE Relationship:Daughter Address: Home Phone: City: [facility] Phone: [facility]/Zip Code: Email: Financial Information Financial Class: Primary Plan Desc:MEDICARE INPATIENT Primary Plan Number:[id number] Secondary Plan Desc:MEDICAID HEALTH FIRST [place] Secondary Plan Number:[id number] Assessment Information [facility] CM Progress Note CM Note CM Note Notes: chart reviewed. Met with patient to review dc POC. Lives independent with good support. She may dc tomorrow if HGB and HCT stable. She is planning on foillowing up with out pt colonoscopy. No needs identified at this time. CM available shound needs arise. Date Signed: 12/15/2016 04:14 PM Electronically Signed By:Freda Raza RN Intervention Information Intervention Type:*NADER-Signed Date of Service:12/15/2016 09:20 AM Patient Type:Observation Staff Member:Paola Bravo Hours: Discipline: Severity: Comment:
== END 2016-12-17 11:53 | disposition home or self-care (01) | DRG 379 ==
LOC: EDUNIT# → F3E 20:25 → OBSVTOIN 12-15 14:48
PROVIDERS: ADMIT Internal Medicine; ATTEND Internal Medicine
DX: K92.2 Gastrointestinal hemorrhage, unspecified (principal); I48.0 Paroxysmal atrial fibrillation; D75.1 Secondary polycythemia; I10 Essential (primary) hypertension; M54.5 Low back pain; I34.0 Nonrheumatic mitral (valve) insufficiency; E87.6 Hypokalemia; J44.9 Chronic obstructive pulmonary disease, unspecified; Z79.1 Long term (current) use of non-steroidal anti-inflammatories (NSAID); Z87.820 Personal history of traumatic brain injury; Z72.0 Tobacco use
CPT/HCPCS: G0378

== ENCOUNTER → 2017-01-13 | Outpatient (CLI) | payer OTHER, MEDICAID | LOC: BHFA 11:30 | PROVIDERS: ATTEND Internal Medicine Cardiovascular Disease | DX: I48.91 Unspecified atrial fibrillation (principal) ==